=== PATIENT | female | born 1955 | race American Indian/Alaskan Native ===

== ENCOUNTER 2018-10-08 08:14 | Day surgery (SDC) | payer MEDICARE ==
[2018-10-07 10:59] VITALS: BMI 29.8
[2018-10-08] MEDS ORDERED: Lactated Ringer's 500 ML IV SCH (08:45)
--- NOTE | 2018-10-08 10:10 | CP.SDSHP ---
Same Day Surgery H & P - History Proposed Procedure: colonoscopy - Previous Medical/Surgical History Cardiac: Hypertension, Hx of CHF Endocrine/Metabolic: Thyroid Disease, Diabetes - Allergies Allergies: Allergies No Known Allergies Allergy (Verified 10/08/18 08:48) - Physical Exam Vital Signs: Vital Signs 10/08/18 09:04 Temperature 97.5 F L Pulse Rate 80 Respiratory 20 Rate Blood Pressure 144/71 O2 Sat by Pulse 97 Oximetry - Date & Time Date: 10/08/18 Time: 10:09 Short Stay Discharge - Short Stay Discharge Admitting Diagnosis/Reason for Visit: SCREENING, CHANGE IN BOWEL HABITS Disposition: HOME/ ROUTINE
[2018-10-08] MEDS ORDERED: Propofol 10 mg/ml Inj (20 ML) ONE (10:20)
[2018-10-08 10:58] VITALS: TEMP 97.7; O2SAT 100
[2018-10-08 11:46] VITALS: BP 120/71; PULSE 70; RESP 13
== END 2018-10-08 12:05 | disposition home or self-care (01) ==
LOC: C.ENDO 08:14
PROVIDERS: ATTEND Colon & Rectal Surgery
DX: Z12.11 Encounter for screening for malignant neoplasm of colon (principal); R19.4 Change in bowel habit; D12.5 Benign neoplasm of sigmoid colon; K57.30 Diverticulosis of large intestine without perforation or abscess without bleeding; K64.8 Other hemorrhoids
CPT/HCPCS: 45380; 82948; 88305; J2001; J2704; J7120